=== PATIENT | female | born 1995 | race Caucasian/White ===

== ENCOUNTER 2016-09-22 18:38 | Emergency (ER) | payer SELFPAY ==
[2016-09-22 18:54] VITALS: TEMP 99.2; O2SAT 94
--- NOTE | 2016-09-22 18:56 | ED.PDOC ---
History of Present Illness - General Chief Complaint: ENT Problem Stated Complaint: Sore throat, congestion and fever Time Seen by Provider: 09/22/16 18:52 Source: patient, RN notes reviewed, Vital Signs reviewed Exam Limitations: no limitations - History of Present Illness Initial Comments: Patient comes in with c/o sore throat, congestion, fever to 101 and reflux. Symptoms started ~ 1 week ago after returning from vacation. Not improving/ resolving except for reflux symptoms with OTC medications and conservative treatment. + BRENNAN, Occasional ear pain. Cough is non productive. No nausea or vomiting. + fatigue. Timing/Duration: gradual, last week Severity: moderate EENT Location: throat Prearrival Treatment: over the counter meds Improving Factors: medication - but just temporary relief Associated Symptoms: cough, fever, malaise, sore throat Allergies/Adverse Reactions: Allergies NO KNOWN ALLERGY Allergy (Verified 06/27/14 15:11) Home Medications: Ambulatory Orders Amoxicillin [Amoxil] 500 mg PO TID #30 cap 09/22/16 Review of Systems - Review of Systems Constitutional: States: chills, fever, malaise EENTM: States: ear pain, throat pain. Denies: nose congestion Respiratory: States: cough. Denies: orthopnea, short of breath, stridor, wheezing Cardiology: States: no symptoms reported Gastrointestinal/Abdominal: States: see HPI, other - Reflux. Denies: nausea, vomiting Musculoskeletal: States: no symptoms reported Skin: States: no symptoms reported Neurological: States: headache All other Systems: No Change from Baseline Past Medical History (General) - Patient Medical History Hx Seizures: No Hx Stroke: No Hx Dementia: No Hx Asthma: No Hx of COPD: No Hx Cardiac Disorders: No Hx Congestive Heart Failure: No Hx Pacemaker: No Hx Hypertension: Yes Hx Thyroid Disease: No Hx Diabetes: No Hx Gastroesophageal Reflux: No Hx Renal Disease: No Hx Cancer: No Hx of HIV: No Hx Hepatitis C: No Hx MRSA: No - Vaccination History Hx Tetanus, Diphtheria Vaccination: Yes Hx Influenza Vaccination: No Hx Pneumococcal Vaccination: No - Social History Hx Tobacco Use: No Hx Chewing Tobacco Use: No Hx Alcohol Use: No Hx Substance Use: No Hx Substance Use Treatment: No Hx Depression: No Hx Physical Abuse: No Hx Emotional Abuse: No Hx Suspected Abuse: No - Female History Patient : No Family Medical History - Family History Mother Living Status: Still Living Hx Family Hypertension: Yes Physical Exam - Physical Exam General Appearance: Alert, No apparent distress, Ill Appearing, Well Developed, Well Groomed, Well Hydrated, Well Nourished Eye Exam: bilateral normal Ear Exam: bilateral ear: auricle normal, canal normal, TM normal Nasal Exam: normal inspection, other - no sinus tenderness Throat Exam: pharynx swelling - and erythema Neck: non-tender, full range of motion, supple, normal inspection Cardiovascular/Respiratory: regular rate, rhythm, no M/R/G, no JVD, normal breath sounds, no respiratory distress Neurologic: alert, normal mood/affect, oriented x 3 Skin Exam: normal color, warm/dry Progress - Results/Orders Results/Orders: Laboratory Tests 09/22/16 19:10 Group A Strep DNA Negative Departure - Departure Clinical Impression: Pharyngitis Acute bronchitis Qualifiers: Bronchitis organism: unspecified organism Qualified Code(s): J20.9 - Acute bronchitis, unspecified Time of Disposition: 19:34 Disposition: Discharge to Home or Self Care Condition: Good Departure Forms: ED Discharge - Pt. Copy, Patient Portal Self Enrollment Instructions: DI for Acute Bronchitis Diet: resume usual diet Activity: increase activity as tolerated Prescriptions: Amoxicillin [Amoxil] 500 mg PO TID #30 cap Home Medications: Ambulatory Orders Amoxicillin [Amoxil] 500 mg PO TID #30 cap 09/22/16
[2016-09-22] MEDS ORDERED: AMOXICILLIN 500 MG CAP PO ONE (19:33)
[2016-09-22 20:21] VITALS: BP 105/60
== END 2016-09-22 19:40 | disposition home or self-care (01) ==
LOC: ER 18:38
DX: J02.9 Acute pharyngitis, unspecified (principal); J20.9 Acute bronchitis, unspecified; I10 Essential (primary) hypertension